=== PATIENT | female | born 1975 | race Caucasian/White ===

== ENCOUNTER 2019-07-28 11:08 | Emergency (ER) | payer BC ==
[2019-07-28 11:26] VITALS: BP 137/91; PULSE 115
[2019-07-28] MEDS: Ketorolac 30 MG/ML SDV IM ONE (11:39)
--- NOTE | 2019-07-28 12:21 | CR ---
[id number] RAD/RAD Shoulder Right 2V Min Exam: RAD Shoulder Right 2V Min Indication:SLIPPED ON ICE. Comparison: No prior imaging for comparison. Discussion: No acute fracture or dislocation. Mild acromioclavicular osteoarthritis. Subacromial space is well-preserved. Impression: No acute findings. Douglas Velez MD 07/28/19 [id number] Thank you for allowing us to participate in the care of your patient.
--- NOTE | 2019-07-28 12:31 | CR ---
[id number] RAD/RAD Elbow Right 3V Min Exam: RAD Elbow Right 3V Min Indication:SLIPPED ON ICE. Comparison: No prior imaging for comparison. Discussion: No fracture or dislocation. No joint effusion. Joint spaces are well-preserved. Impression: No acute findings. Douglas Velez MD 07/28/19 6158 Thank you for allowing us to participate in the care of your patient.
--- NOTE | 2019-07-28 12:36 | CR ---
[id number] RAD/RAD Wrist Right 3V Min Exam: RAD Wrist Right 3V Min Indication:SLIPPED ON ICE. Comparison: No prior imaging for comparison. Discussion: Negative for fracture or dislocation. No AVN or erosive changes. Joint spaces are well-preserved. Impression: No acute findings. Douglas Velez MD 07/28/19 4101 Thank you for allowing us to participate in the care of your patient.
--- NOTE | 2019-07-28 13:05 | EDM.PDOC ---
ED HPI GENERAL MEDICAL PROBLEM - General Chief Complaint: Upper Extremity Injury/Pain Stated Complaint: FELL AND HURT RIGHT WRIST Time Seen by Provider: 07/28/19 11:25 Source of Information: Reports: Patient, Family History Limitations: Reports: No Limitations - History of Present Illness INITIAL COMMENTS - FREE TEXT/NARRATIVE: Pt. complains of R shoulder, elbow, and wrist pain. Pt. states that she thinks she fell onto an outstretched R hand. Denies striking her head. No neck or back pain. No chest pain or shortness of breath. Denies trauma to her other extremities. No abdominal pain. She states that she has been taking ibuprofen but it has not been helping. Onset Date: 07/27/19 Location: Reports: Upper Extremity, Right Quality: Reports: Ache Severity: Moderate Treatments LATHE TENDER: Reports: NSAIDS Right Wrist Pain Score (Numeric/FACES): 10 - Related Data Allergies Allergy/AdvReac Type Severity Reaction Status Date / Time adhesive Allergy Rash Verified 07/28/19 11:52 Iodinated Contrast Media Allergy Hives Verified 07/28/19 11:52 latex Allergy Rash Verified 07/28/19 11:52 meperidine [From Demerol] Allergy Nausea and Verified 07/28/19 11:52 Vomiting Penicillins Allergy Hives Verified 07/28/19 11:52 Home Meds: Home Meds Acetaminophen/Butalbital/Caff [Fioricet 325-50-40 MG] 1 tab PO Q4H PRN 07/28/19 [History] Cholecalciferol (Vitamin D3) [Vitamin D3] 1,000 units PO DAILY 07/28/19 [History ] Gabapentin [Neurontin] 300 mg PO BID 07/28/19 [History] Ibuprofen [Motrin] 800 mg pe PO TID 07/28/19 [History] Labetalol [Normodyne] 200 mg PO BID 07/28/19 [History] Loratadine [Claritin] 10 mg PO DAILY 07/28/19 [History] Magnesium Oxide 250 mg PO DAILY 07/28/19 [History] Nortriptyline 10 mg PO DAILY 07/28/19 [History] Omeprazole 20 mg PO DAILY 07/28/19 [History] Pnv No.95/Ferrous Fum/Folic AC [ Vitamin Tablet] 1 tab PO DAILY [History] SUMAtriptan Succinate [Imitrex] 0.5 ml SUBCUT BID PRN 07/28/19 [History] SUMAtriptan Succinate [Imitrex] 100 mg PO ASDIRECTED PRN 07/28/19 [History] Past Medical History HEENT History: Reports: Allergic Rhinitis Cardiovascular History: Reports: Hypertension, Other (See Below) Other Cardiovascular History: hyperglyceridemia Gastrointestinal History: Reports: GERD 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, , Other (See Below) 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: infertility, with assisted reproductive technology Musculoskeletal History: Reports: Neck Pain, Chronic Neurological History: Reports: Migraines - Past Surgical History GI Surgical History: Reports: Appendectomy Female Surgical History: Reports: Section Musculoskeletal Surgical History: Reports: Arthroscopic Knee Social & Family History - Tobacco Use Smoking Status *Q: Never Smoker - Recreational Drug Use Recreational Drug Use: No Review of Systems - Review of Systems Review Of Systems: See Below Constitutional: Reports: No Symptoms Eyes: Reports: No Symptoms Ears: Reports: No Symptoms Nose: Reports: No Symptoms Mouth/Throat: Reports: No Symptoms Respiratory: Reports: No Symptoms Cardiovascular: Reports: No Symptoms GI/Abdominal: Reports: No Symptoms Genitourinary: Reports: No Symptoms Musculoskeletal: Reports: Shoulder Pain, Joint Pain, Other (shoulder, elbow, and wrist pain) Skin: Reports: No Symptoms Neurological: Reports: No Symptoms Psychiatric: Reports: No Symptoms ED EXAM, GENERAL - Physical Exam Exam: See Below Exam Limited By: No Limitations General Appearance: Alert, WD/WN, No Apparent Distress Extremities: Normal Inspection, Normal Range of Motion, Joint Swelling, Arm Pain , Limited Range of Motion Neurological: Alert, Oriented, CN II-XII Intact, Normal Cognition, Normal Gait, Normal Reflexes, No Motor/Sensory Deficits Course - Vital Signs Last Recorded V/S: Last Vital Signs Temp 36.9 C 07/28/19 11:25 Pulse 115 H 07/28/19 11:25 Resp 14 07/28/19 11:25 BP 137/91 H 07/28/19 11:25 Pulse Ox 95 07/28/19 11:25 - Orders/Labs/Meds Meds: Medications Discontinued Medications Generic Name Dose Route Start Last Admin Trade Name Freq PRN Reason Stop Dose Admin Ketorolac Tromethamine 30 mg 07/28/19 11:32 07/28/19 11:39 Toradol IM 07/28/19 11:33 30 mg ONETIME ONE Administration Departure - Departure Time of Disposition: 13:05 Disposition: Home, Self-Care 01 Clinical Impression: Right shoulder strain, Right wrist sprain, Elbow strain - Discharge Information Instructions: RICE Therapy for Routine Care of Injuries, [id number], Wrist Sprain, Adult Referrals: Matti James PA-C [Primary Care Provider] - Forms: ED Department Discharge Additional Instructions: Home to rest. Ibuprofen 200mg 3 tabs every 6 hours as needed for pain Ice painful areas for 15 min every hour. Recheck in clinic if not better in 7-10 days Sepsis Event Note - Evaluation Sepsis Screening Result: No Definite Risk - Focused Exam Vital Signs: Vital Signs Temp Pulse Resp BP Pulse Ox 07/28/19 11:25 36.9 C 115 H 14 137/91 H 95 Date Exam was Performed: 07/28/19 Time Exam was Performed: 13:00 - Assessment/Plan Plan: Home to rest. Ibuprofen 200mg 3 tabs every 6 hours as needed for pain Ice painful areas for 15 min every hour. Recheck in clinic if not better in 7-10 days
== END 2019-07-28 12:52 | disposition home or self-care (01) ==
LOC: VM.ED 11:08
DX: S46.911A Strain of unspecified muscle, fascia and tendon at shoulder and upper arm level, right arm, initial encounter (principal); S46.811A Strain of other muscles, fascia and tendons at shoulder and upper arm level, right arm, initial encounter; S63.501A Unspecified sprain of right wrist, initial encounter; I10 Essential (primary) hypertension; K21.9 Gastro-esophageal reflux disease without esophagitis; Z91.040 Latex allergy status; Z91.041 Radiographic dye allergy status; Z91.048 Other nonmedicinal substance allergy status; Z88.0 Allergy status to penicillin; Z88.5 Allergy status to narcotic agent; Z79.899 Other long term (current) drug therapy; W19.XXXA Unspecified fall, initial encounter
CPT/HCPCS: 73030; 73080; 73110; 96372; 99283; J1885

== ENCOUNTER 2020-09-13 09:55 | Emergency (ER) | payer BC ==
[2020-09-13] MEDS ORDERED: HYDROmorphone 1 MG/ML Syringe SUBCUT ONE (10:12)
[2020-09-13 10:13] VITALS: BP 146/104; PULSE 107
[2020-09-13] MEDS ORDERED: Cyclobenzaprine 10 MG Tab PO ONE (10:13)
[2020-09-13] MEDS ORDERED: Ketorolac 30 MG/ML SDV IM ONE (10:13)
[2020-09-13] MEDS ORDERED: Take Home: Naproxen 500 MG Tab, 4 Tab Pack PO ONE (10:50)
[2020-09-13] MEDS ORDERED: Take Home: Cyclobenzaprine 10 MG Tab, 4 Tab Pack PO ONE (10:50)
--- NOTE | 2020-09-13 10:50 | EDM.PDOC ---
ED HPI GENERAL MEDICAL PROBLEM - General Chief Complaint: Back Pain or Injury Time Seen by Provider: 09/13/20 10:05 Source of Information: Reports: Patient History Limitations: Reports: No Limitations - History of Present Illness INITIAL COMMENTS - FREE TEXT/NARRATIVE: Pt. presents to ER with complaints of R sided mid back/chest pain. Pt. states that this started this morning abruptly when she was doing laundry. She states that she was moving clothes from the washer to the dryer. She complains of acute onset sharp pain in the above stated are. She states that the discomfort is worse with movement. Denies any shortness of breath, but complains of increased pain with deep breathing. Denies any high impact injury, fever, chills, cough, or other worrisome signs/symptoms. Onset: Today Location: Reports: Chest, Back Quality: Reports: Stabbing Severity: Severe Worsens with: Reports: Breathing, Movement Associated Symptoms: Reports: Chest Pain. Denies: Confusion, Cough, Fever/Chills, Headaches, Loss of Appetite, Malaise, Nausea/Vomiting, Rash, Se izure, Shortness of Breath, Syncope, Weakness Middle Back Pain Score (Numeric/FACES): 10 - Related Data Allergies Allergy/AdvReac Type Severity Reaction Status Date / Time adhesive Allergy Rash Verified 09/13/20 10:08 Iodinated Contrast Media Allergy Hives Verified 09/13/20 10:08 latex Allergy Rash Verified 09/13/20 10:08 meperidine [From Demerol] Allergy Nausea and Verified 09/13/20 10:08 Vomiting Penicillins Allergy Hives Verified 09/13/20 10:08 Home Meds: Home Meds Cholecalciferol (Vitamin D3) [Vitamin D3] 1,000 units PO DAILY 07/28/19 [History] Gabapentin [Neurontin] 300 mg PO BID 07/28/19 [History] Ibuprofen [Motrin] 800 mg pe PO TID 07/28/19 [History] Labetalol [Normodyne] 200 mg PO BID 07/28/19 [History] Loratadine [Claritin] 10 mg PO DAILY 07/28/19 [History] Magnesium Oxide 250 mg PO DAILY 07/28/19 [History] Nortriptyline 10 mg PO DAILY 07/28/19 [History] Omeprazole 20 mg PO DAILY 07/28/19 [History] Pnv No.95/Ferrous Fum/Folic AC [ Vitamin Tablet] 1 tab PO DAILY 07/28/19 [History] SUMAtriptan succinate [Imitrex] 0.5 ml SUBCUT BID PRN 07/28/19 [History] SUMAtriptan succinate [Imitrex] 100 mg PO ASDIRECTED PRN 07/28/19 [History] Past Medical History HEENT History: Reports: Allergic Rhinitis Cardiovascular History: Reports: Hypertension, Other (See Below) Other Cardiovascular History: hyperglyceridemia Gastrointestinal History: Reports: GERD 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 ED EXAM, GENERAL - Physical Exam Exam: See Below Exam Limited By: No Limitations General Appearance: Alert, WD/WN, No Apparent Distress Throat/Mouth: Normal Inspection, Normal Lips, Normal Teeth, Normal Gums, Normal Oropharynx, Normal Voice, No Airway Compromise Head: Atraumatic, Normocephalic Neck: Normal Inspection, Supple, Non-Tender, Full Range of Motion Respiratory/Chest: No Respiratory Distress, Lungs Clear, Normal Breath Sounds, No Accessory Muscle Use, Other (Tenderness, R anterior chest wall) Cardiovascular: Normal Peripheral Pulses, Regular Rate, Rhythm, No Edema, No JVD, No Murmur Back Exam: Normal Inspection, Full Range of Motion, Other (Tenderness, L posterior chest wall. No midline thoracic vertebral pain. No obvious deformity noted. ) Course - Vital Signs Last Recorded V/S: Last Vital Signs Temp 35.8 C L 09/13/20 10:00 Pulse 107 H 09/13/20 10:00 Resp 16 09/13/20 10:00 BP 146/104 H 09/13/20 10:00 Pulse Ox 95 09/13/20 10:00 - Orders/Labs/Meds Meds: Medications Discontinued Medications Generic Name Dose Route Start Last Admin Trade Name Freq PRN Reason Stop Dose Admin Cyclobenzaprine HCl 10 mg 09/13/20 10:13 09/13/20 10:20 Flexeril PO 09/13/20 10:14 10 mg ONETIME ONE Administration Cyclobenzaprine HCl 1 packet 09/13/20 10:50 09/13/20 11:22 Take Home: Cyclobenzaprine 10 Mg, 4 Tab Pack PO 09/13/20 10:51 1 packet ONETIME ONE Administration Hydromorphone HCl 1 mg 09/13/20 10:12 09/13/20 10:20 Dilaudid SUBCUT 09/13/20 10:13 1 mg ONETIME ONE Administration Ketorolac Tromethamine 30 mg 09/13/20 10:13 09/13/20 10:20 Toradol IM 09/13/20 10:14 30 mg ONETIME ONE Administration Naproxen 1 packet 09/13/20 10:50 09/13/20 11:22 Take Home: Naproxen 500 Mg, 4 Tab Pack PO 09/13/20 10:51 1 packet ONETIME ONE Administration Departure - Departure Time of Disposition: 22:58 Disposition: Home, Self-Care 01 Clinical Impression: Scalp laceration - Discharge Information Referrals: Matti James PA-C [Primary Care Provider] - Forms: ED Department Discharge Additional Instructions: No fracture or other abnormality noted on the chest x-ray. Stop mobic. Begin Naproxen 500mg twice daily Flexeril 10mg 1 tab 3 times daily for spasm Work on improving range of motion to the area. Off work tomorrow if needed Sepsis Event Note (ED) - Evaluation Sepsis Screening Result: No Definite Risk
--- NOTE | 2020-09-13 11:12 | CR ---
[id number] RAD/RAD Chest PA And Lateral EXAM: RAD Chest PA And Lateral INDICATION: POSTERIOR RIGHT SIDED CHEST PAIN. COMPARISON: None. DISCUSSION: Cardiomediastinal silhouette is normal in size and contour. No infiltrate, effusion, pneumothorax, or edema. IMPRESSION: No acute cardiopulmonary abnormality. Charlie Sharif DO 09/13/20 1110 Thank you for allowing us to participate in the care of your patient.
== END 2020-09-13 11:38 | disposition home or self-care (01) ==
LOC: VM.ED 09:55
DX: S01.01XA Laceration without foreign body of scalp, initial encounter (principal); R07.89 Other chest pain; I10 Essential (primary) hypertension; K21.9 Gastro-esophageal reflux disease without esophagitis; Z88.0 Allergy status to penicillin; Z88.8 Allergy status to other drugs, medicaments and biological substances; Z91.048 Other nonmedicinal substance allergy status; Z91.041 Radiographic dye allergy status; Z91.040 Latex allergy status; Z79.899 Other long term (current) drug therapy; X58.XXXA Exposure to other specified factors, initial encounter
CPT/HCPCS: 71046; 96372; 99283-25; A9270-GY; J1170; J1885

== ENCOUNTER 2021-01-01 06:40 | Day surgery (SDC) | payer BC ==
[2021-01-01] MEDS ORDERED: Lactated Ringers 1,000 ML IV SCH (07:00)
[2021-01-01] MEDS ORDERED: Lidocaine 4% 5 ML Amp ONE (08:03)
[2021-01-01] MEDS ORDERED: fentaNYL 100 MCG/2 ML SDV ONE (08:19)
[2021-01-01] MEDS ORDERED: Midazolam 1 MG/ML 2 ML SDV ONE (08:19)
[2021-01-01] MEDS ORDERED: Propofol 200 MG/20 ML SDV ONE (08:19)
[2021-01-01 09:11] VITALS: BP 129/79; PULSE 84
--- NOTE | 2021-01-01 13:38 | OR ---
PREOPERATIVE DIAGNOSES: 1. Epigastric pain. 2. Gastroesophageal reflux disease. POSTOPERATIVE DIAGNOSES: 1. Epigastric pain. 2. Gastroesophageal reflux disease. 3. Antritis without jenni ulceration. PROCEDURE PERFORMED: Esophagogastroduodenoscopy with biopsies. ANESTHESIA: MAC anesthesia. COMPLICATIONS: None. BLOOD LOSS: Minimal. FINDINGS: 1. There was inflammation of the antrum and a little bit in the body of the stomach. This was biopsied and sent for H pylori evaluation. 2. The duodenum was unremarkable and examined up to the junction between the second and third portions. 3. The Z-line was regular at 36 cm. 4. There was no hiatal hernia or esophagitis seen. INDICATION FOR PROCEDURE: Sofia Parra is a 45-year-old female who has had a cough for about 2 years. She also has some reflux and epigastric pain which are mostly controlled with omeprazole. Her PCP wanted her to have an upper endoscopy to evaluate this discomfort. DETAILS OF PROCEDURE: Informed consent was obtained. The patient was brought to the procedure room and placed in the left lateral decubitus position. MAC anesthesia was induced by Anesthesia colleagues. The endoscope was introduced in the patient's mouth through the upper esophageal sphincter and down to the stomach. The pylorus was intubated and the duodenum was examined up to the junction of the second and third portion. We then thoroughly examined the stomach including retroflex view. There was some antritis, and multiple biopsies were taken and sent for H pylori. The endoscope was then withdrawn. The esophagus was examined on the way out. No pathology was identified except for what is mentioned in the above findings section. The patient tolerated the procedure well, was awoken from MAC anesthesia by Anesthesia colleagues without incident. PATHOLOGY: RECOMMENDATIONS: RKM: 01/01/2021 08:36:31 MODL: 01/01/2021 11:59:19 /[id number]
== END 2021-01-01 10:15 | disposition home or self-care (01) ==
LOC: VM.SDS 06:40
PROVIDERS: ATTEND Student in an Organized Health Care Education/Training Program
DX: K29.50 Unspecified chronic gastritis without bleeding (principal); K21.9 Gastro-esophageal reflux disease without esophagitis; K25.9 Gastric ulcer, unspecified as acute or chronic, without hemorrhage or perforation; G89.29 Other chronic pain; E78.2 Mixed hyperlipidemia; Z68.39 Body mass index [BMI] 39.0-39.9, adult; Z79.899 Other long term (current) drug therapy; Z88.0 Allergy status to penicillin; Z91.040 Latex allergy status; Z91.041 Radiographic dye allergy status; Z88.8 Allergy status to other drugs, medicaments and biological substances
CPT/HCPCS: 00731; 43239; J2250; J2704; J3010; J7120

== ENCOUNTER 2021-02-08 07:39 | Emergency (ER) | payer BC ==
[2021-02-08] MEDS ORDERED: fentaNYL 100 MCG/2 ML SDV IM ONE (08:49)
[2021-02-08] MEDS ORDERED: Ketorolac 30 MG/ML SDV IM ONE (08:49)
--- NOTE | 2021-02-08 08:54 | EDM.PDOC ---
ED HPI GENERAL MEDICAL PROBLEM - General Chief Complaint: General Stated Complaint: FELL DOWN THE STEPS Time Seen by Provider: 02/08/21 08:46 Source of Information: Reports: Patient - History of Present Illness INITIAL COMMENTS - FREE TEXT/NARRATIVE: Sofia is a 45 y/o female who presents to the ER via POV after she fell down about 5-6 carpeted steps at her home. She missed a step and then her right leg got stuck and her right knee twisted when she fell. She fell froward down the steps. She is complaining of right knee, right ankle, left elbow, and right wrist pain. She is just sore all over the longer she is here. Generalized Pain Score (Numeric/FACES): 8 - Related Data Allergies Allergy/AdvReac Type Severity Reaction Status Date / Time adhesive Allergy Rash Verified 02/08/21 07:55 Iodinated Contrast Media Allergy Hives Verified 02/08/21 07:55 latex Allergy Rash Verified 02/08/21 07:55 Penicillins Allergy Hives Verified 02/08/21 07:55 meperidine [From Demerol] AdvReac Nausea and Verified 02/08/21 07:55 Vomiting Home Meds: Home Meds Cholecalciferol (Vitamin D3) [Vitamin D3] 1,000 units PO DAILY 07/28/19 [History] Gabapentin [Neurontin] 300 mg PO BID 07/28/19 [History] Magnesium Oxide 500 mg PO DAILY 07/28/19 [History] SUMAtriptan succinate [Imitrex] 100 mg PO ASDIRECTED PRN 07/28/19 [History] Estradiol/Norethindrone Acet [Amabelz 0.5 mg-0.1 mg Tablet] 1 each PO DAILY 12/14/20 [History] Labetalol [Normodyne] 200 mg PO BID 12/14/20 [History] Multivitamin 1 each PO DAILY 12/14/20 [History] Nortriptyline HCl [Pamelor] 25 mg PO BEDTIME 12/14/20 [History] Nortriptyline HCl [Pamelor] 50 mg PO BEDTIME 12/14/20 [History] Omeprazole 40 mg PO DAILY 12/14/20 [History] Prochlorperazine Maleate [Compazine] 10 mg PO QID 12/14/20 [History] Rizatriptan Benzoate [Rizatriptan] 10 mg PO ASDIRECTED PRN 12/14/20 [History] Hydrocodone/Acetaminophen [HYDROcodone-Acetaminophen 5-325 MG] 1 - 2 each PO Q4H PRN #20 tablet 02/08/21 [Rx] Ibuprofen 800 mg PO Q8H PRN #60 tablet 02/08/21 [Rx] Past Medical History HEENT History: Reports: Allergic Rhinitis Cardiovascular History: Reports: High Cholesterol, Hypertension, Other (See Below) Other Cardiovascular History: hyperglyceridemia Gastrointestinal History: Reports: GERD 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, , Other (See Below) 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: infertility, with assisted reproductive technology Musculoskeletal History: Reports: Neck Pain, Chronic Neurological History: Reports: Migraines Dermatologic History: Reports: Other (See Below) Other Dermatologic History: rash - Past Surgical History GI Surgical History: Reports: Appendectomy, Colonoscopy, EGD Female Surgical History: Reports: Breast Reconstruction, Section, Salpingo-Oophorectomy, Other (See Below) Other Female Surgeries/Procedures: ovarian surgery Musculoskeletal Surgical History: Reports: Arthroscopic Knee, ORIF Social & Family History - Tobacco Use Tobacco Use Status *Q: Never Tobacco User - Recreational Drug Use Recreational Drug Use: No ED ROS GENERAL - Review of Systems Review Of Systems: See Below Constitutional: Reports: No Symptoms HEENT: Reports: No Symptoms Respiratory: Reports: No Symptoms Cardiovascular: Reports: No Symptoms Endocrine: Reports: No Symptoms GI/Abdominal: Reports: No Symptoms : Reports: No Symptoms Musculoskeletal: Reports: Joint Pain (right knee, right ankle, right wrist, and left elbow) Skin: Reports: No Symptoms Neurological: Reports: No Symptoms Psychiatric: Reports: No Symptoms Hematologic/Lymphatic: Reports: No Symptoms Immunologic: Reports: No Symptoms ED EXAM, GENERAL - Physical Exam Exam: See Below General Appearance: Alert, WD/WN, No Apparent Distress, Other (Lying quietly on the cart.) Eye Exam: Bilateral Eye: PERRL Ears: Hearing Grossly Normal Nose: Normal Inspection, Normal Mucosa Throat/Mouth: Normal Inspection, Normal Lips, Normal Voice Head: Atraumatic, Normocephalic Neck: Normal Inspection, Supple Respiratory/Chest: No Respiratory Distress, Lungs Clear, Chest Non-Tender Cardiovascular: Normal Peripheral Pulses, Regular Rate, Rhythm GI/Abdominal: Normal Bowel Sounds, Soft (Female) Exam: Deferred Rectal (Female) Exam: Deferred Back Exam: Normal Inspection Extremities: No Pedal Edema, Normal Capillary Refill, Other (Note tenderenss to right knee with palpation, ROM painful, no effusion noted, but boody habitus mkaes assessment diffcult; right ankle +tender and painful with ROM but no deformity, right elbow slight swollen and a small superficial scratch, ROM painful, right wrist + tender, but ROM WNL) Neurological: Alert Psychiatric: Normal Affect, Normal Mood Skin Exam: Warm, Dry, Intact, Normal Color Course - Vital Signs Text/Narrative:: The patient was seen by the GEAR TECHNICIAN. Xrays ordered. Fentanyl 100mcg IM and Toradol 30mg IM ordered for pain. Xrays reviewed. Additional views of schaphoid ordered on right wrist. Knee immobilizer applied to right knee. She was still having lots of pain. Dilaudid 1mg SQ ordered. Additional schaphoid xray views noted no acuter findings. DIEGO applied to right wrist. She was given written and she left the ER in stable condition. Last Recorded V/S: Last Vital Signs Temp 36.2 C 02/08/21 07:56 Pulse 80 02/08/21 09:57 Resp 16 02/08/21 09:57 BP 127/79 02/08/21 09:57 Pulse Ox 97 02/08/21 09:57 - Orders/Labs/Meds Orders: Active Orders 24 hr Category Date Time Status HYDROmorphone [Dilaudid] Med 02/08/21 10:27 Once 1 mg SUBCUT ONETIME ONE DME for Discharge [COMM] Stat Oth 02/08/21 09:16 Ordered Meds: Medications Discontinued Medications Generic Name Dose Route Start Last Admin Trade Name Varun PRN Reason Stop Dose Admin Fentanyl 100 mcg 02/08/21 08:49 02/08/21 09:30 Fentanyl 100 Mcg/2 Ml Sdv IM 02/08/21 08:50 100 mcg ONETIME ONE Administration Ketorolac Tromethamine 30 mg 02/08/21 08:49 02/08/21 09:25 Ketorolac 30 Mg/Ml Sdv IM 02/08/21 08:50 30 mg ONETIME ONE Administration - Radiology Interpretation Free Text/Narrative:: XR Right Wrist 2V=no acute findings XR Left Elbow 2V=no acute findings XR Right Ankle=no fx, soft tissue swelling XR Right Knee 2V=trace joint effusion, no fx (See final report) Departure - Departure Time of Disposition: 10:30 Disposition: Home, Self-Care 01 Condition: Good Clinical Impression: Derangement of right knee, Right wrist pain Fall Qualifiers: Encounter type: initial encounter Qualified Code(s): W19.XXXA - Unspecified fall, initial encounter Elbow pain Qualifiers: Laterality: left Qualified Code(s): M25.522 - Pain in left elbow Right ankle pain Qualifiers: Chronicity: acute Qualified Code(s): M25.571 - Pain in right ankle and joints of right foot - Discharge Information *PRESCRIPTION DRUG MONITORING PROGRAM REVIEWED*: No *COPY OF PRESCRIPTION DRUG MONITORING REPORT IN PATIENT IDNO: No Prescriptions: Hydrocodone/Acetaminophen [HYDROcodone-Acetaminophen 5-325 MG] 1 - 2 each PO Q4H PRN #20 tablet PRN Reason: Pain Ibuprofen 800 mg PO Q8H PRN #60 tablet PRN Reason: Pain Instructions: Acute Knee Pain, Adult, How to Use a Knee Immobilizer Referrals: Matti James PA-C [Primary Care Provider] - Forms: ED Department Discharge Additional Instructions: -Ibuprofen 800mg oral every 8 hours as needed #60(Rx) -Hydrocodone/APAP 5/325mg 1-2 tablets every 4-6 hours as needed for pain #20 (Rx) -Knee immobilizer to right as instructed -Use crutches as instructed -DIEGO wrap to right wrist as needed -Apply ice as able -Keep the affected extremity elevated as much as possible -Return to your Primary Care Provider for further care in 1 week or sooner for recheck and possible referral for more Diagnostic Imaging -Return to the ER as needed for any concerns Sepsis Event Note (ED) - Evaluation Sepsis Screening Result: No Definite Risk - Focused Exam Vital Signs: Vital Signs Temp Pulse Resp BP Pulse Ox 02/08/21 09:57 80 16 127/79 97 02/08/21 07:56 36.2 C 85 16 130/81 97 - My Orders Last 24 Hours: My Active Orders 02/08/21 09:16 DME for Discharge [COMM] Stat 02/08/21 10:27 HYDROmorphone [Dilaudid] 1 mg SUBCUT ONETIME ONE - Assessment/Plan Last 24 Hours: My Active Orders 02/08/21 09:16 DME for Discharge [COMM] Stat 02/08/21 10:27 HYDROmorphone [Dilaudid] 1 mg SUBCUT ONETIME ONE
--- NOTE | 2021-02-08 09:26 | CR ---
[id number] RAD/RAD Ankle Right 2V EXAM: RAD Ankle Right 2V INDICATION: FALL. COMPARISON: None. DISCUSSION: Lateral soft tissue swelling. No acute fracture or dislocation is identified. Joint spaces are maintained. Small Achilles attachment enthesophyte. IMPRESSION: 1. Soft tissue swelling. No acute osseous abnormality. Evan Khalil MD 02/08/21 0925 Thank you for allowing us to participate in the care of your patient.
--- NOTE | 2021-02-08 09:26 | CR ---
[id number] RAD/RAD Wrist Right 2V EXAM: 2 VIEWS RIGHT WRIST. INDICATION: FALL. COMPARISON: None. DISCUSSION: On the scaphoid view there is question of nondisplaced fracture involving the distal pole. Dedicated scaphoid view is recommended for further evaluation. IMPRESSION: 1. As above. Charlie Sharif DO 02/08/21 0925 Thank you for allowing us to participate in the care of your patient.
--- NOTE | 2021-02-08 09:27 | CR ---
[id number] RAD/RAD Elbow Left 2V EXAM: 2 VIEWS LEFT ELBOW. INDICATION: FALL. COMPARISON: None. DISCUSSION: No fracture, dislocation or other acute osseous abnormality. IMPRESSION: 1. No acute osseous abnormalities Charlie Sharif DO 02/08/21 0975 Thank you for allowing us to participate in the care of your patient.
--- NOTE | 2021-02-08 09:27 | CR ---
[id number] RAD/RAD Knee Right 1-2V EXAM: RAD Knee Right 1-2V INDICATION: FALL. COMPARISON: None. 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 Trace joint effusion. No acute fracture or dislocation is identified. IMPRESSION: 1. Trace joint effusion. No acute osseous abnormality. Evan Khalil MD 02/08/21 0925 Thank you for allowing us to participate in the care of your patient.
--- NOTE | 2021-02-08 10:26 | CR ---
[id number] RAD/RAD Wrist Right 2V EXAM: RAD Wrist Right 2V INDICATION: FALL. COMPARISON: February 08, 2021. DISCUSSION: There is a small osteophyte projecting off the tip of the distal scaphoid with no definite fracture identified. Mild triscaphe osteoarthritis. IMPRESSION: 1. No acute findings. Evan Khalil MD 02/08/21 1025 Thank you for allowing us to participate in the care of your patient.
[2021-02-08] MEDS ORDERED: HYDROmorphone 1 MG/ML Syringe SUBCUT ONE (10:27)
[2021-02-08 10:42] VITALS: BP 112/73; PULSE 73
== END 2021-02-08 11:33 | disposition home or self-care (01) ==
LOC: VM.ED 07:39
DX: S50.311A Abrasion of right elbow, initial encounter (principal); M23.91 Unspecified internal derangement of right knee; M25.571 Pain in right ankle and joints of right foot; M25.522 Pain in left elbow; M25.531 Pain in right wrist; I10 Essential (primary) hypertension; K21.9 Gastro-esophageal reflux disease without esophagitis; G43.909 Migraine, unspecified, not intractable, without status migrainosus; Z91.048 Other nonmedicinal substance allergy status; Z91.041 Radiographic dye allergy status; Z91.040 Latex allergy status; Z88.0 Allergy status to penicillin; Z88.8 Allergy status to other drugs, medicaments and biological substances; Z79.899 Other long term (current) drug therapy; W10.9XXA Fall (on) (from) unspecified stairs and steps, initial encounter; Y92.009 Unspecified place in unspecified non-institutional (private) residence as the place of occurrence of the external cause
CPT/HCPCS: 73070-LT; 73100-RT; 73110-RT; 73560-RT; 73600-RT; 96372; 99283; 99283-25; J1170; J1885; J3010